=== PATIENT | female | born 1945 | race African-American/Black ===

== ENCOUNTER 2018-02-26 10:01 | Inpatient (IN) ==
[2018-02-26] MEDS ORDERED: Sodium Chlor 0.9% Inj 500 ML IV.SIG ONE (10:12)
--- NOTE | 2018-02-26 10:15 | ED ---
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 Culture Comments Urine Opiates Screen (Neg) Ur Barbiturates Screen (Neg) Ur Amphetamines Screen (Neg) U Benzodiazepines Scrn (Neg) Urine Cocaine Screen (Neg) U Cannabinoids Screen (Neg) 03/02/18 03/02/18 03/03/18 Range/Units 16:25 21:10 08:36 WBC (4.0-11.0) th/mm3 RBC (4.00-5.30) mil/mm3 Hgb (11.6-15.3) gm/dL Hct (35.0-46.0) % MCV (80.0-100.0) fL MCH (27.0-34.0) pg MCHC (32.0-36.0) % RDW (11.6-17.2) % Plt Count (150-450) th/mm3 MPV (7.0-11.0) fL Neut % (Auto) (16.0-70.0) % Lymph % (Auto) (9.0-44.0) % [place] % (Auto) (0.0-8.0) % Eos % (Auto) (0.0-4.0) % Baso % (Auto) (0.0-2.0) % Neut # (Auto) (1.8-7.7) th/mm3 Lymph # (Auto) (1.0-4.8) th/mm3 Valley # (Auto) (0.0-0.9) th/mm3 Eos # (Auto) (0.0-0.4) th/mm3 Baso # (Auto) (0.0-0.2) th/mm3 WBC Differential Differential Comment Sodium (136-145) meq/L Potassium (3.5-5.1) meq/L Chloride (98-107) meq/L Carbon Dioxide (21.0-32.0) meq/L Anion Gap (5-15) meq/L BUN (7-18) mg/dL Creatinine (0.50-1.00) mg/dL Estimated GFR (>89) mL/min POC Glucose 126 H 105 114 H (68-110) mg/dl Random Glucose (74-106) mg/dL Calcium (8.5-10.1) mg/dL Total Bilirubin (0.2-1.0) mg/dL Direct Bilirubin (0.0-0.2) mg/dL Indirect Bilirubin (0.0-0.8) mg/dL AST (15-37) U/L ALT (10-53) U/L Alkaline Phosphatase (45-117) U/L Ammonia (11-32) mcmol/L Total Creatine Kinase (26-192) U/L Troponin I (0.02-0.05) ng/mL Total Protein (6.4-8.2) g/dL Albumin (3.4-5.0) g/dL Urine Color (Yellw/Straw) Urine Clarity (Clear) Urine pH (5.0-8.5) Ur Specific [place] (1.002-1.035) Urine Protein (Neg-Trace) mg/dL Urine Glucose (UA) (Negative) mg/dL Urine Ketones (Negative) mg/dL Urine Occult Blood (Negative) Urine Nitrate (Negative) Urine Bilirubin (Negative) Urine Urobilinogen (Less than 2) mg/dL Ur Leukocyte Esterase (Negative) Urine RBC (0-3) /hpf Urine WBC (0-5) /hpf Urine WBC Clumps (None) Ur Squamous Epith Cells (0-5) /hpf Urine Bacteria (None) /hpf Hyaline Casts (0-3) /lpf Granular Casts (None) /lpf Micro UA Comment Ur Microscopic Review Urine Culture Comments Urine Opiates Screen (Neg) Ur Barbiturates Screen (Neg) Ur Amphetamines Screen (Neg) U Benzodiazepines Scrn (Neg) Urine Cocaine Screen (Neg) U Cannabinoids Screen (Neg) Imaging Data Radiologist's impression: Abdomen/Bladder Ultrasound 02/26/18 00:00 CONCLUSION: 1. Small right kidney. 2. 2.8 cm mid pole left renal cyst. 3. No solid mass or hydronephrosis. 4. Unremarkable urinary bladder. Chest X-Ray 02/26/18 10:12 CONCLUSION: No acute cardiopulmonary disease. Foot X-Ray 02/26/18 10:35 CONCLUSION: Apparent chronic metatarsal head fractures as above. Head CT 02/26/18 15:28 CONCLUSION: 1. Chronic/senescent changes without acute intracranial abnormality. . Discharge Plan Discharge Disposition Patient Disposition: 30 Still Patient Discharge Condition Condition: Fair Discharge Order Discharge Orders: Discharge Order (Routine); Ordered 03/01/18 Ordered By: Nikki Escobar Discharge Details Diagnosis: Syncope, Delirium Physicians Team ED Provider: Michael Jarrett Primary Care Provider: UNKNOWN, Attending Provider: Ashley Kothari Other Providers: David Cash ; Mckenna Vernon [place],[employer] ; [employer] Discharge Interventions Interventions: ED Discharge Assessment Last Done: 02/26/18 16:14 Vital Signs Last Done: 02/26/18 15:29 Status ED Status: Left Department Discharge Information Discharge Date/Time: 02/26/18 16:15
--- NOTE | 2018-02-26 11:37 | XR ---
EXAM DATE: 02/26/2018 10:56 AM EDT AGE/SEX: 72 years / Female INDICATIONS: Chest pain. CLINICAL DATA: This is the patient's initial encounter. Patient reports that signs and symptoms have been present for 1 day and indicates a pain score of 0/10. MEDICAL/SURGICAL HISTORY: None. . Right knee replacement. COMPARISON: No prior exams available for comparison. FINDINGS: A single AP view of the chest demonstrates the lungs to be symmetrically aerated without evidence of mass, infiltrate or effusion. The cardiomediastinal contours are unremarkable. Osseous structures a re intact. CONCLUSION: No acute cardiopulmonary disease. Electronically signed by: Denny Cunningham MD 02/26/2018 11:36 AM EDT
--- NOTE | 2018-02-26 11:50 | XR ---
EXAM DATE: 02/26/2018 11:00 AM EDT AGE/SEX: 72 years / Female INDICATIONS: Generalized pain on the left foot at mid metatarsal region. CLINICAL DATA: This is the patient's initial encounter. Patient reports that signs and symptoms have been present for 1 day and indicates a pain score of 5/10. MEDICAL/SURGICAL HISTORY: None. . Right knee replacement. COMPARISON: No prior exams available for comparison. FINDINGS: Moderate hallux valgus deformity with apparent chronic fractures of the second third fourth and fifth metatarsal heads. The tarsometatarsal joint in anatomic alignment. Minimal plantar spurring. CONCLUSION: Apparent chronic metatarsal head fractures as above. Electronically signed by: Dae Murillo MD 02/26/2018 11:48 AM EDT
[2018-02-26 12:48] LABS: Baso # (Auto) 0.1 th/mm3 (0.0-0.2); Baso % (Auto) 0.9 % (0.0-2.0); Eos % (Auto) 0.6 % (0.0-4.0); Hematocrit 38.6 % (35.0-46.0); Hemoglobin 13.1 gm/dL (11.6-15.3); Lymph # (Auto) 2.2 th/mm3 (1.0-4.8); Lymph % (Auto) 28.9 % (9.0-44.0); Mean Corpuscular Hemoglobin 27.3 pg (27.0-34.0); Mean Corpuscular Volume 80.1 fL (80.0-100.0); Mean Platelet Volume 9.7 fL (7.0-11.0); Mono # (Auto) 0.5 th/mm3 (0.0-0.9); Mono % (Auto) 5.8 % (0.0-8.0); Neut # (Auto) 4.9 th/mm3 (1.8-7.7); Neut % (Auto) 63.8 % (16.0-70.0); Platelet Count 250 th/mm3 (150-450); Red Blood Count 4.81 mil/mm3 (4.00-5.30); Red Cell Distribution Width 14.9 % (11.6-17.2); White Blood Count 7.8 th/mm3 (4.0-11.0)
[2018-02-26 13:16] LABS: Alkaline Phosphatase 89 U/L (45-117); Total Protein 8.1 g/dL (6.4-8.2)
[2018-02-26 13:18] LABS: Alanine Aminotransferase 37 U/L (10-53); Albumin 3.4 g/dL (3.4-5.0); Anion Gap 10 meq/L (5-15); Blood Urea Nitrogen 38 mg/dL (7-18); Calcium 8.9 mg/dL (8.5-10.1); Carbon Dioxide 25.9 meq/L (21.0-32.0); Chloride 104 meq/L (98-107); Glomerular Filtration Rate 33 mL/min (>89); Glucose,Random 83 mg/dL (74-106); Sodium 140 meq/L (136-145)
[2018-02-26 13:19] LABS: Aspartate Aminotransferase 47 U/L (15-37); Potassium 5.2 meq/L (3.5-5.1)
[2018-02-26] MEDS ORDERED: Bisacodyl 10 MG Supp RECTAL PRN (14:41)
[2018-02-26] MEDS ORDERED: Sod Chloride 0.9% Inj 1,000 ML IV.CONT SCH (14:45)
--- NOTE | 2018-02-26 14:57 | P.HPIM ---
History of Present Illness Primary Care Physician: UNKNOWN Chief Complaint: Generalized weakness and frequent falls Review of Systems 14 point review of systems otherwise negative PMFSH - History History Provided By: Patient - Medical History Medical History: Medical History (Last Updated 02/26/18 @ 10:15 by Danika Alfredo) Diabetes FH: total knee replacement HTN (hypertension) - Surgical History Surgical History: Surgical History (Last Updated 02/26/18 @ 10:15 by Danika Alfredo) History of ankle surgery - Social History I have reviewed the patient's Social History: Yes - Tobacco History Second Hand Smoke Exposure: No Tobacco Use In Past 30 Days: No Smoking Status: Never smoker - Alcohol History How Often Do You Have a Drink Containing Alcohol: Never - Substance Use History Substance History: No History of Abuse - Travel History Recent Travel in the [place] Within the Last 8 Weeks: No Recent Travel Out of the Country Within the Last 8 Weeks: No - Immunization History Tetanus Immunization: <5 Years Hx Influenza Vaccine This Season: Yes Medications and Allergies Active Medications: Active Medications Acetaminophen (Tylenol) 650 mg PO Q4H PRN PRN Reason: Temp > 100.4 Al Hydroxide/Mg Hydroxide (Milk Of Magnesia Liq) 30 ml PO Q12H PRN PRN Reason: Mild Constipation Bisacodyl (Dulcolax Supp) 10 mg RECTAL DAILY PRN PRN Reason: SEVERE CONSITIPATION Enoxaparin Sodium (Lovenox Inj) 30 mg SQ Q24H MICHAEL Ceftriaxone Sodium 1,000 mg/ (Sodium Chloride) 100 mls @ 200 mls/hr IV.SIG Q24H MICHAEL Sodium Chloride (Ns Inj) 1,000 mls @ 100 mls/hr IV.CONT .Q10H MICHAEL Lactulose (Lactulose Liq) 30 ml PO DAILY PRN PRN Reason: SEVERE CONSITIPATION Ondansetron HCl (Zofran Inj) 4 mg IV.PUSH Q6H PRN PRN Reason: NAUSEA OR VOMITING Senna/Docusate Sodium (Katja-Colace) 1 tab PO BID MICHAEL Sennosides (Senokot) 17.2 mg PO Q12H PRN PRN Reason: Moderate Constipation Sertraline HCl (Zoloft) 50 mg PO DAILY [facility] Sodium Chloride (Ns Flush) 2 ml IV.FLUSH UNSCH PRN PRN Reason: FLUSH AFTER USING IV ACCESS Allergies Allergy/AdvReac Type Severity Reaction Status Date / Time diphenhydramine Allergy Severe HALLUCINATI Verified 02/26/18 10:10 ONS meperidine Allergy Severe HALLUCINATI Verified 02/26/18 10:10 ONS Home Medications Medication Instructions Recorded Confirmed Type furosemide 40 mg PO DAILY 02/26/18 02/26/18 History glimepiride 1 mg PO QAM 02/26/18 02/26/18 History lisinopril 30 mg PO DAILY 02/26/18 02/26/18 History metformin 1,000 mg PO BID 02/26/18 02/26/18 History naproxen 500 mg PO BID PRN 02/26/18 02/26/18 History pregabalin [Lyrica] 100 mg PO DAILY 02/26/18 02/26/18 History ropinirole 0.25 mg PO DAILY 02/26/18 02/26/18 History sertraline 50 mg PO DAILY 02/26/18 02/26/18 History Exam Vital signs: Vital Signs 02/26/18 10:11 02/26/18 10:17 02/26/18 11:49 Temperature 98.3 F Pulse Rate 86 80 Respiratory Rate 16 15 Blood Pressure 118/67 108/59 L Pulse Oximetry 98 97 95 02/26/18 12:12 Temperature Pulse Rate Respiratory Rate Blood Pressure Pulse Oximetry 96 Intake & Output 02/25/18 02/26/18 02/26/18 18:59 06:59 18:59 Intake Total 500 / 500 Balance 500 / 500 Weight 66.224 kg Intake: IV 500 / 500 NS Inj 500 ML @ 999 mls/hr IV. 500 / 500 SIG ONCE ONE Rx#:[id number] Narrative: GENERAL: Alert and oriented to time place and person. Not encephalopathic SKIN: Warm and dry. HEAD: Atraumatic. Normocephalic. EYES: Pupils equal and round. No scleral icterus. No injection or drainage. ENT: No nasal bleeding or discharge. Mucous membranes pink and moist. NECK: Trachea midline. No JVD. CARDIOVASCULAR: Regular rate and rhythm. Capillary refill greater than 2 seconds. Skin is warm. Well-perfused RESPIRATORY: No accessory muscle use. Clear to auscultation. Breath sounds equal bilaterally. GASTROINTESTINAL: Abdomen soft, non-tender, nondistended. Hepatic and splenic margins not palpable. MUSCULOSKELETAL: There is some tenderness of the left mid foot. extremities without clubbing, cyanosis, or edema. No obvious deformities. NEUROLOGICAL: Awake and alert. No obvious cranial nerve deficits. Motor grossly within normal limits. Five out of 5 muscle strength in the arms and legs. Normal speech. PSYCHIATRIC: Appropriate mood and affect; insight and judgment normal. Results - Labs CBC & Chem 7: 02/26/18 12:33 02/26/18 12:33 Labs: Short CBC 02/26/18 Range/Units 12:33 WBC 7.8 (4.0-11.0) th/mm3 Hgb 13.1 (11.6-15.3) gm/dL Hct 38.6 (35.0-46.0) % Plt Count 250 (150-450) th/mm3 BMP 02/26/18 12:33 Sodium 140 Potassium 5.2 H Chloride 104 Carbon Dioxide 25.9 BUN 38 H Creatinine 1.84 H Calcium 8.9 Cardiac Enzymes 02/26/18 Range/Units 12:33 Troponin I Less than 0.02 L (0.02-0.05) ng/mL Liver Function 02/26/18 Range/Units 12:33 Total Bilirubin 0.6 (0.2-1.0) mg/dL AST 47 H (15-37) U/L ALT 37 (10-53) U/L Alkaline Phosphatase 89 (45-117) U/L Albumin 3.4 (3.4-5.0) g/dL - Imaging Impressions Chest X-Ray 02/26/18 10:12 CONCLUSION: No acute cardiopulmonary disease. Foot X-Ray 02/26/18 10:35 CONCLUSION: Apparent chronic metatarsal head fractures as above. Caprini VTE Risk Assessment Caprini VTE Risk Assessment: Moderate/High Risk (score >= 2) Caprini Risk Assessment Model: Point Value = 1 Point Value = 2 Point Value = 3 Point Value = 5 Age 41-60 Minor surgery BMI > 25 kg/m2 Swollen legs Varicose veins or History of unexplained or recurrent spontaneous Oral contraceptives or hormone replacement Sepsis (< 1 month) Serious lung disease, including pneumonia (< 1 month) Abnormal pulmonary function Acute myocardial infarction Congestive heart failure (< 1 month) History of inflammatory bowel disease Medical patient at bed rest Age 61-74 Arthroscopic surgery Major open surgery (> 45 min) Laparoscopic surgery (> 45 min) Malignancy Confined to bed (> 72 hours) Immobilizing plaster cast Central venous access Age >= 75 History of VTE Family history of VTE Factor V Leiden Prothrombin [id number] Lupus anticoagulant Anticardiolipin antibodies Elevated serum homocysteine Heparin-induced thrombocytopenia Other congenital or acquired thrombophilia Stroke (< 1 month) Elective arthroplasty Hip, pelvis, or leg fracture Acute spinal cord injury (< 1 month) Prophylaxis Regimen: Total Risk Factor Score Risk Level Prophylaxis Regimen 0-1 Low Early ambulation 2 Moderate Order ONE of the following: *Sequential Compression Device (SCD) *Heparin 5000 units SQ BID 3-4 Higher Order ONE of the following medications: *Heparin 5000 units SQ TID *Enoxaparin/Lovenox 40 mg SQ daily (WT < 150 kg, CrCl > 30 mL/min) *Enoxaparin/Lovenox 30 mg SQ daily (WT < 150 kg, CrCl > 10-29 mL/min) *Enoxaparin/Lovenox 30 mg SQ BID (WT < 150 kg, CrCl > 30 mL/min) AND/OR *Sequential Compression Device (SCD) 5 or more Highest Order ONE of the following medications: *Heparin 5000 units SQ TID (Preferred with Epidurals) *Enoxaparin/Lovenox 40 mg SQ daily (WT < 150 kg, CrCl > 30 mL/min) *Enoxaparin/Lovenox 30 mg SQ daily (WT < 150 kg, CrCl > 10-29 mL/min) *Enoxaparin/Lovenox 30 mg SQ BID (WT < 150 kg, CrCl > 30 mL/min) AND *Sequential Compression Device (SCD) Assessment and Plan - Plan #Severe hypotension present on admission no evidence of sepsis on admission most likely secondary to volume depletion/dehydration sepsis cannot be completely rule out #Orthostatic hypotension secondary to pulling the place and slight dehydration possible sepsis #Apparent chronic metatarsal head fractures with multiple falls? Sarcoid joint # Acute kidney injury secondary to prerenal azotemia due to acute tubular necrosis #History diabetes type 2 we will hold metformin/glyburide continue with Accu- Cheks before meals at bedtime #History of hypertension now hypotensive we will hold antihypertensive agents continue with gentle hydration #History of diabetic neuropathy on Lyrica will hold for now until she is more alert #History of diabetic nephropathy Plan Telemetry/normocephalic 100 cc/h/monitor for sepsis/hold antihypertensive agents and hypoglycemia agents. Accu-Cheks before meals at bedtime. Empirical treatment with Rocephin. Follow-up urine culture sensitivity. Lovenox for DVT prophylaxis. Fall precautions. Obtain orthopedic input. PT/OT. Case management for discharge planning Patient's increased risk for severe dehydration/sepsis. Anticipated length of stay 2 nights. Disposition home with home health care
--- NOTE | 2018-02-26 16:14 | CT ---
EXAM DATE: 02/26/2018 4:10 PM EDT AGE/SEX: 72 years / Female INDICATIONS: Altered mental status. CLINICAL DATA: This is the patient's initial encounter. Patient reports that signs and symptoms have been present for 1 day and indicates a pain score of 0/10. MEDICAL/SURGICAL HISTORY: Diabetes. Hypertension. None. RADIATION DOSE: 56.43 CTDI (mGy) COMPARISON: No prior exams available for comparison. TECHNIQUE: CT of the head without contrast. Using automated exposure control and adjustment of the mA and/or kV according to patient size, radiation dose was kept as low as reasonably achievable to ob tain optimal diagnostic quality images. DICOM format image data is available electronically for revi ew and comparison. FINDINGS: Cerebrum: Chronic appearing fairly symmetrical atrophy/encephalomalacia of the medial occipital lobes at the mid convexities bilaterally. Moderate diffuse cerebral atrophy. The ventricles are normal for degree of atrophy. No evidence of midline shift, mass lesion, hemorrhage or acute infarction. No ex traaxial fluid collections are seen. Posterior Fossa: The cerebellum and brainstem are intact. The 4th ventricle is midline. The cerebe llopontine angle is unremarkable. Extracranial: The visualized portion of the orbits is intact. 5 mm right scalp lipoma. Skull: The calvaria is intact. No evidence of skull fracture. CONCLUSION: 1. Chronic/senescent changes without acute intracranial abnormality. . Electronically signed by: Darshan Lakhani MD 02/26/2018 4:13 PM EDT
[2018-02-26 16:42] LABS: Bacteria,Urine Rare /hpf; Bilirubin,Urine Negative (Negative); Clarity,Urine Hazy (Clear); Color,Urine Yellow (Yellw/Straw); Glucose,Urine (UA) Negative (Negative); Hyaline Casts,Urine 23 /lpf (0-3); Leukocyte Esterase,Urine Moderate (Negative); Nitrite,Urine Negative (Negative); Specific Gravity,Urine 1.011 (1.002-1.035); Squamous Epithelial Cell,Urine 1 /hpf (0-5)
[2018-02-26] MEDS: Insulin NovoLOG Aspart Correctional Sugar Inj SQ SCH ×2 (16:49→21:09)
[2018-02-26] MEDS: Enoxaparin Inj 30 MG/0.3 ML Syringe SQ SCH (16:50)
[2018-02-26 16:55] LABS: Amphetamine Screen,Urine Neg (Neg); Barbiturate Screen,Urine Neg (Neg); Cannabinoid Screen,Urine Neg (Neg); Cocaine Screen,Urine Neg (Neg); Opiate Screen,Urine Neg (Neg)
[2018-02-26] MEDS ORDERED: Dextrose 50% in Water 50 ML Vial IV.PUSH PRN (17:11)
--- NOTE | 2018-02-26 17:21 | P.HPIM ---
History of Present Illness Primary Care Physician: UNKNOWN Chief Complaint: Generalized weakness and frequent falls History of Present Illness: 72-year-old female sent in by her physician due to hypotension. Reportedly his systolic blood pressures in the 70s, found to be systolic in the 80s on admission here. She denies any lightheadedness or dizziness. She does report starting a prescription for furosemide 3 days ago. Her main complaint is of constant sharp left midfoot pain which is been going on for several days following a mechanical fall at home. She says she got a wheelchair from a family member several days ago but it is not working. She wants to know if there is a brace or something that she can put on her foot that will help her walk. Patient says she is feeling all right. Denies any chest pain or shortness breath. Denies nausea or vomiting. Denies any lightheadedness or dizziness. Denies fevers or chills. Denies any dysuria. Denies any diarrhea or constipation. Review of Systems All other systems reviewed negative except as stated in HPI [facility] - History History Provided By: Patient - Medical History Medical History: Medical History (Last Updated 02/26/18 @ 10:15 by Danika Alfredo) Diabetes FH: total knee replacement HTN (hypertension) - Surgical History Surgical History: Surgical History (Last Updated 02/26/18 @ 10:15 by Danika Alfredo) History of ankle surgery - Family History Family History: Family History (Last Updated 02/26/18 @ 17:20 by Derek Paz MD) Father Stroke Mother of unknown cause - Tobacco History Second Hand Smoke Exposure: No Tobacco Use In Past 30 Days: No Smoking Status: Never smoker - Alcohol History How Often Do You Have a Drink Containing Alcohol: Never - Substance Use History Substance History: No History of Abuse - Travel History Recent Travel in the [place] Within the Last 8 Weeks: No Recent Travel Out of the Country Within the Last 8 Weeks: No - Immunization History Tetanus Immunization: <5 Years Hx Influenza Vaccine This Season: Yes Medications and Allergies Active Medications: Active Medications Acetaminophen (Tylenol) 650 mg PO Q4H PRN PRN Reason: Temp > 100.4 Al Hydroxide/Mg Hydroxide (Milk Of Magnesia Liq) 30 ml PO Q12H PRN PRN Reason: Mild Constipation Bisacodyl (Dulcolax Supp) 10 mg RECTAL DAILY PRN PRN Reason: SEVERE CONSITIPATION Dextrose (D50w Vial) 50 ml IV.PUSH UNSCH PRN PRN Reason: PER HYPOGLYCEMIA PROTOCOL Enoxaparin Sodium (Lovenox Inj) 30 mg SQ Q24H [facility] Last Admin: 02/26/18 16:50 Dose: 30 mg Glucagon (Glucagon Inj) 1 mg OTHER PRN PRN PRN Reason: for Hypoglycemia Protocol Ceftriaxone Sodium 1,000 mg/ (Sodium Chloride) 100 mls @ 200 mls/hr IV.SIG Q24H [facility] Last Admin: 02/26/18 16:46 Dose: 200 mls/hr Sodium Chloride (Ns Inj) 1,000 mls @ 84 mls/hr IV.CONT .[id number] [facility] Insulin Aspart (Novolog Insulin Correctional Sugar Inj) 0 unit SQ ACHS [facility]; Protocol Last Admin: 02/26/18 16:49 Dose: Not Given Lactulose (Lactulose Liq) 30 ml PO DAILY PRN PRN Reason: SEVERE CONSITIPATION Ondansetron HCl (Zofran Inj) 4 mg IV.PUSH Q6H PRN PRN Reason: NAUSEA OR VOMITING Ropinirole HCl (Requip) 0.25 mg PO DAILY [facility] Senna/Docusate Sodium (Katja-Colace) 1 tab PO BID [facility] Sennosides (Senokot) 17.2 mg PO Q12H PRN PRN Reason: Moderate Constipation Sertraline HCl (Zoloft) 50 mg PO DAILY [facility] Sodium Chloride (Ns Flush) 2 ml IV.FLUSH UNSCH PRN PRN Reason: FLUSH AFTER USING IV ACCESS Allergies Allergy/AdvReac Type Severity Reaction Status Date / Time diphenhydramine Allergy Severe HALLUCINATI Verified 02/26/18 10:10 ONS meperidine Allergy Severe HALLUCINATI Verified 02/26/18 10:10 ONS Home Medications Medication Instructions Recorded Confirmed Type furosemide 40 mg PO DAILY 02/26/18 02/26/18 History glimepiride 1 mg PO QAM 02/26/18 02/26/18 History lisinopril 30 mg PO DAILY 02/26/18 02/26/18 History metformin 1,000 mg PO BID 02/26/18 02/26/18 History naproxen 500 mg PO BID PRN 02/26/18 02/26/18 History pregabalin [Lyrica] 100 mg PO DAILY 02/26/18 02/26/18 History ropinirole 0.25 mg PO DAILY 02/26/18 02/26/18 History sertraline 50 mg PO DAILY 02/26/18 02/26/18 History Exam Vital signs: Vital Signs 02/26/18 10:11 02/26/18 10:17 02/26/18 11:49 Temperature 98.3 F Pulse Rate 86 80 Respiratory Rate 16 15 Blood Pressure 118/67 108/59 L Pulse Oximetry 98 97 95 02/26/18 12:12 02/26/18 15:29 02/26/18 16:40 Temperature 97.8 F Pulse Rate 80 78 Respiratory Rate 16 18 Blood Pressure 111/61 125/60 Pulse Oximetry 96 98 02/26/18 16:43 Temperature Pulse Rate Respiratory Rate Blood Pressure Pulse Oximetry 97 Intake & Output 02/25/18 02/26/18 02/26/18 18:59 06:59 18:59 Intake Total 500 / 500 Balance 500 / 500 Weight 66.224 kg Intake: IV 500 / 500 NS Inj 500 ML @ 999 mls/hr IV. 500 / 500 SIG ONCE ONE Rx#:[id number] Narrative: GENERAL:patient sitting up in bed. Alert and oriented times 3. SKIN: Warm and dry. HEAD: Atraumatic. Normocephalic. EYES: Pupils equal and round. No scleral icterus. No injection or drainage. ENT: No nasal bleeding or discharge. Mucous membranes pink and moist. NECK: Trachea midline. No JVD. CARDIOVASCULAR: Regular rate and rhythm. RESPIRATORY: No accessory muscle use. Clear to auscultation. Breath sounds equal bilaterally. GASTROINTESTINAL: Abdomen soft, non-tender, nondistended. Hepatic and splenic margins not palpable. MUSCULOSKELETAL: Extremities without clubbing, cyanosis, or edema. No obvious deformities. very small stage 2 subcentimeter ulcer on the left buttocks. Left foot examined, not tender to palpation. Previous surgical scars noted. NEUROLOGICAL: Awake and alert. No obvious cranial nerve deficits. Motor grossly within normal limits. 4 out of 5 muscle strength in the arms and legs. Normal speech. PSYCHIATRIC: Appropriate mood and affect; insight and judgment normal. Results - Labs CBC & Chem 7: 02/26/18 12:33 02/26/18 12:33 Labs: Short CBC 02/26/18 Range/Units 12:33 WBC 7.8 (4.0-11.0) th/mm3 Hgb 13.1 (11.6-15.3) gm/dL Hct 38.6 (35.0-46.0) % Plt Count 250 (150-450) th/mm3 BMP 02/26/18 12:33 Sodium 140 Potassium 5.2 H Chloride 104 Carbon Dioxide 25.9 BUN 38 H Creatinine 1.84 H Calcium 8.9 Cardiac Enzymes 02/26/18 02/26/18 Range/Units 12:33 16:00 Total Creatine Kinase 170 (26-192) U/L Troponin I Less than 0.02 L (0.02-0.05) ng/mL Liver Function 02/26/18 Range/Units 12:33 Total Bilirubin 0.6 (0.2-1.0) mg/dL AST 47 H (15-37) U/L ALT 37 (10-53) U/L Alkaline Phosphatase 89 (45-117) U/L Albumin 3.4 (3.4-5.0) g/dL Urine 02/26/18 Range/Units 15:49 Urine Color Yellow (Yellw/Straw) Urine Clarity Hazy H (Clear) Urine pH 5.0 (5.0-8.5) Ur Specific [place] 1.011 (1.002-1.035) Urine Protein Negative (Neg-Trace) mg/dL Urine Glucose (UA) Negative (Negative) mg/dL - Imaging Impressions Chest X-Ray 02/26/18 10:12 CONCLUSION: No acute cardiopulmonary disease. Foot X-Ray 02/26/18 10:35 CONCLUSION: Apparent chronic metatarsal head fractures as above. Head CT 02/26/18 15:28 CONCLUSION: 1. Chronic/senescent changes without acute intracranial abnormality. . Caprini VTE Risk Assessment Caprini VTE Risk Assessment: Moderate/High Risk (score >= 2) Caprini Risk Assessment Model: Point Value = 1 Point Value = 2 Point Value = 3 Point Value = 5 Age 41-60 Minor surgery BMI > 25 kg/m2 Swollen legs Varicose veins or History of unexplained or recurrent spontaneous Oral contraceptives or hormone replacement Sepsis (< 1 month) Serious lung disease, including pneumonia (< 1 month) Abnormal pulmonary function Acute myocardial infarction Congestive heart failure (< 1 month) History of inflammatory bowel disease Medical patient at bed rest Age 61-74 Arthroscopic surgery Major open surgery (> 45 min) Laparoscopic surgery (> 45 min) Malignancy Confined to bed (> 72 hours) Immobilizing plaster cast Central venous access Age >= 75 History of VTE Family history of VTE Factor V Leiden Prothrombin [id number] Lupus anticoagulant Anticardiolipin antibodies Elevated serum homocysteine Heparin-induced thrombocytopenia Other congenital or acquired thrombophilia Stroke (< 1 month) Elective arthroplasty Hip, pelvis, or leg fracture Acute spinal cord injury (< 1 month) Prophylaxis Regimen: Total Risk Factor Score Risk Level Prophylaxis Regimen 0-1 Low Early ambulation 2 Moderate Order ONE of the following: *Sequential Compression Device (SCD) *Heparin 5000 units SQ BID 3-4 Higher Order ONE of the following medications: *Heparin 5000 units SQ TID *Enoxaparin/Lovenox 40 mg SQ daily (WT < 150 kg, CrCl > 30 mL/min) *Enoxaparin/Lovenox 30 mg SQ daily (WT < 150 kg, CrCl > 10-29 mL/min) *Enoxaparin/Lovenox 30 mg SQ BID (WT < 150 kg, CrCl > 30 mL/min) AND/OR *Sequential Compression Device (SCD) 5 or more Highest Order ONE of the following medications: *Heparin 5000 units SQ TID (Preferred with Epidurals) *Enoxaparin/Lovenox 40 mg SQ daily (WT < 150 kg, CrCl > 30 mL/min) *Enoxaparin/Lovenox 30 mg SQ daily (WT < 150 kg, CrCl > 10-29 mL/min) *Enoxaparin/Lovenox 30 mg SQ BID (WT < 150 kg, CrCl > 30 mL/min) AND *Sequential Compression Device (SCD) Assessment and Plan - Plan //Severe hypotension. /With history of hypertension -Hypotension Likely secondary to dehydration secondary to starting furosemide recently. Improved after fluid bolus in the ER. We will continue to hold furosemide. Gentle hydration. Continue to monitor. Will order orthostatic blood pressures. //Acute kidney injury. Her creatinine 1.8 from normal baseline. Likely secondary to recently starting Lasix, subsequent dehydration. hold MANISHA inhibitor.Expect to improve with IV fluids. //Hyperkalemia of 5.2. Secondary to a MATT above. Expect to improve with IV fluids. //Chronic metatarsal head fractures on left foot x-ray. Consult placed to orthopedics. Physical therapy ordered. Patient will likely need SNF, as she has been unable to get around at home. //Type 2 diabetes. Relative hypoglycemia likely secondary to acute kidney injury, decreased insulin clearance. Hold home meds. Insulin sliding scale and diabetic diet //Sacral ulcer. Small ulcer, which patient reports is secondary to drag herself around home because her foot hurts. Wound care nursing evaluation. //Possible UTI. Versus asymptomatic bacteriuria. Patient with some white blood cell clumps on urinalysis. Has been started on ceftriaxone. We'll follow up cultures. //Diabetic neuropathy. Continue home meds. //DVT prophylaxis. Low-dose Lovenox. Discussed Condition With: patient, nurse, ED physician. Discharge Planning: hopefully home with home health versus SNF in the next 12 days
[2018-02-26] MEDS: Sod Chloride 0.9% Inj 1,000 ML IV.CONT SCH (18:55)
--- NOTE | 2018-02-26 19:34 | MB ---
cc: Rico Wetzel [facility] DATE: 02/26/2018 CHIEF COMPLAINT: Left foot pain. HISTORY OF PRESENT ILLNESS: This is a 72-year-old female who arrived at the emergency department today by EMS for evaluation after being found on her floor. The patient states that she has had some balance issues recently and has had several falls. The patient did fall today and was unable to get off the floor independently. The patient states that 1 week ago, she fell and started having pain about the left foot. The patient states she had no pain to the left foot other than her normal peripheral neuropathy prior to her fall. Currently, the patient states her pain is moderate to severe. The patient states the pain is intermittent and is worse when ambulatory or when weightbearing. The patient states most of her pain is about the midfoot. The patient does have some tingling and numbness about the bilateral feet from her peripheral neuropathy. The patient does ambulate regularly with a walker or cane. The patient has a history of diabetes, hypertension and peripheral neuropathy. REVIEW OF SYSTEMS: Negative x 12 except for what is stated in the HPI. PAST MEDICAL HISTORY: 1. Diabetes. 2. Hypertension. 3. Peripheral neuropathy. PAST SURGICAL HISTORY: 1. Right total knee arthroplasty with Dr. Cash. 2. Left ankle open reduction and internal fixation. 3. Tonsillectomy. 4. section. SOCIAL HISTORY: The patient denies any tobacco, alcohol or drug use. ALLERGIES: DEMEROL AND BENADRYL. MEDICATIONS: See nurse's notes. PHYSICAL EXAMINATION: VITAL SIGNS: Temperature 97.8, pulse 78, respirations 18, blood pressure 125/60, pulse oximetry 97% on room air. GENERAL: This is an elderly female in mild distress. HEAD: Normocephalic and atraumatic. EYES: PERRLA. EARS, NOSE, AND THROAT: There are moist mucous membranes with no drainage from the ears or nose. NECK: Supple and trachea is midline. CARDIOVASCULAR: The patient has 2+ radial pulses bilaterally and 1+ pedal pulses bilaterally. RESPIRATORY: The patient has symmetric chest wall rise and nonlabored breathing. ABDOMEN: Soft and nondistended. MUSCULOSKELETAL: The patient has no tenderness and good range of motion of the bilateral ankles, knees, hips, wrists, elbows and shoulders. The patient does have some tenderness to palpation about the left midfoot. There is some chronic deformity to the bilateral toes. Skin is intact about the left foot. The patient has no tenderness about the Achilles or the ankle. The patient does have some mild swelling to the midfoot. NEUROLOGIC: The patient is alert and oriented x 3 with no obvious cranial nerve deficits. PSYCHIATRIC: The patient has a normal mood and affect. LABORATORY DATA: Taken on 02/26/2018 show a white blood cell count of 7.8, hemoglobin 13.1, hematocrit 38.6, platelets 250. Potassium is elevated at 5.2, creatinine is high at 1.84, glucose is 83. Troponin is less than 0.02. Urinalysis taken on 02/26/2018 does show moderate leukocyte esterase with negative nitrites. The patient has high urine bacteria. Culture is indicated. IMAGING DATA: X-ray of the left foot, 3 views, on 02/26/2018 reads as apparent chronic metatarsal head fractures. There is moderate hallux valgus deformity with chronic fractures to the second, third, fourth and fifth metatarsal heads. I have reviewed the x-ray images and agree with the radiologist's interpretation. IMPRESSION: 1. Left foot chronic to subacute second, third, fourth and fifth metatarsal head and neck fractures. 2. Moderate hallux valgus deformity of the left foot. MEDICAL DECISION MAKING: I have reviewed the aforementioned images and do feel that the fractures to the second, third, fourth and fifth metatarsal heads/necks are chronic to subacute. We discussed the patient's findings today during her evaluation. The patient is clinically tender over the midfoot. The patient does report having a recent fall 1 week ago and states her pain did start at that time. I would like to place the patient in a fracture boot today to offload stress to the midfoot. The patient should try to limit her weightbearing on the left lower extremity. The patient should use a walker for balance and support. I do feel the patient would benefit from some physical therapy to work on her balance issues as well as some range of motion for the left ankle. I do not feel the patient requires any surgical intervention for the foot. There is overall good alignment of her fractures, which should heal in good anatomical position. I would like the patient to follow up in the office in 1-2 weeks for close followup of the left foot. We will repeat x-rays, AP, lateral and oblique views. The patient will remain limited with her weightbearing status until her symptoms resolve. I have reviewed the above impression and plan of care with Dr. Cash and he agrees with this documentation. JOHANNE LoveP MD CHRYSTAL Ivy/harshal , 05:40 PM , 05:58 PM ANDREEA
--- NOTE | 2018-02-26 19:42 | US ---
EXAM DATE: 02/26/2018 7:24 PM EDT AGE/SEX: 72 years / Female INDICATIONS: Increased lab values. CLINICAL DATA: This is the patient's initial encounter. Patient reports that signs and symptoms have been present for 1 day and indicates a pain score of 0/10. MEDICAL/SURGICAL HISTORY: Diabetes. Hypertension. . Total knee replacement. Ankle surgery. COMPARISON: No prior exams available for comparison. MEASUREMENTS: Right Kidney:__7.1 x 3.8 x 4.4 cm Left Kidney:__9.0 x 6.1 x 4.6 cm FINDINGS: Right Kidney: The right kidney is small compared to the left but demonstrates no solid mass or hydron ephrosis. Left Kidney: The left kidney is more normal in size and demonstrates no solid mass or hydronephrosis. There is a simple cyst within the midpole measuring 2.4 x 2.4 x 2.8 cm. Bladder: Within normal limits given the degree of distension. Other: None. CONCLUSION: 1. Small right kidney. 2. 2.8 cm mid pole left renal cyst. 3. No solid mass or hydronephrosis. 4. Unremarkable urinary bladder. Electronically signed by: Michael Espinoza MD 02/26/2018 7:40 PM EDT
[2018-02-26] MEDS: Senna/Docusate Sodium 8.6/50 MG Tablet PO SCH (21:09)
[2018-02-27] MEDS: Acetaminophen 325 MG Tablet PO PRN ×2 (01:27→13:13)
[2018-02-27] MEDS: Sod Chloride 0.9% Inj 1,000 ML IV.CONT SCH (06:31)
[2018-02-27] MEDS ORDERED: Furosemide 40 MG Tablet PO SCH (09:00)
[2018-02-27] MEDS: Sertraline 50 MG Tablet PO SCH (09:16)
[2018-02-27] MEDS: Senna/Docusate Sodium 8.6/50 MG Tablet PO SCH ×2 (09:16→22:32)
[2018-02-27] MEDS: Insulin NovoLOG Aspart Correctional Sugar Inj SQ SCH ×4 (10:57→22:32)
[2018-02-27 10:58] LABS: Alanine Aminotransferase 29 U/L (10-53); Albumin 2.7 g/dL (3.4-5.0); Alkaline Phosphatase 84 U/L (45-117); Anion Gap 9 meq/L (5-15); Aspartate Aminotransferase 41 U/L (15-37); Blood Urea Nitrogen 29 mg/dL (7-18); Calcium 8.7 mg/dL (8.5-10.1); Carbon Dioxide 24.8 meq/L (21.0-32.0); Chloride 109 meq/L (98-107); Glomerular Filtration Rate 46 mL/min (>89); Glucose,Random 73 mg/dL (74-106); Potassium 5.2 meq/L (3.5-5.1); Sodium 143 meq/L (136-145); Total Protein 6.7 g/dL (6.4-8.2)
--- NOTE | 2018-02-27 11:49 | P.PNIM ---
Subjective Interval history: Follow-up severe hypotension, acute kidney injury, chronic metatarsal left foot fracture, and possible UTI. Patient seen and evaluated laying in bed, Complains of pain and discomfort in the left foot when walking on it. Patient states that she got caught in a wire at home and starting to hurt her feet.. Denies any dizziness or lightheadedness, shortness of breath. Denies any fever or chills. Denies any nausea or vomiting. Denies diarrhea or constipation. Physical Exam Vital signs: Vital Signs 02/26/18 11:49 02/26/18 12:12 02/26/18 15:29 Temperature Pulse Rate 80 80 Respiratory Rate 15 16 Blood Pressure 108/59 L 111/61 Pulse Oximetry 95 96 98 02/26/18 16:40 02/26/18 16:43 02/26/18 20:00 Temperature 97.8 F 98.3 F Pulse Rate 78 94 H Respiratory Rate 18 18 Blood Pressure 125/60 114/84 Pulse Oximetry 97 02/26/18 23:13 02/27/18 03:46 02/27/18 08:00 Temperature 98.6 F 98.6 F 97.8 F Pulse Rate 72 89 71 Respiratory Rate 19 19 16 Blood Pressure 99/54 L 119/56 L 101/53 L Pulse Oximetry 96 98 Intake & Output 02/26/18 02/27/18 02/27/18 18:59 06:59 18:59 Intake Total 600 / 600 1270 / 1270 1000 / 1000 Output Total 400 / 400 Balance 600 / 600 870 / 870 1000 / 1000 Weight 66.224 kg 66.224 kg Intake: IV 600 / 600 1000 / 1000 1000 / 1000 NS Inj 1,000 ML @ 84 mls/hr IV. 1000 / 1000 CONT .[id number] MICHAEL Rx#:[id number] NS Inj 500 ML @ 999 mls/hr IV. 500 / 500 SIG ONCE ONE Rx#:[id number] Rocephin Inj 1,000 MG In NS Inj 100 / 100 100 ML @ 200 mls/hr IV.SIG Q24H [facility] Rx#:[id number] Oral 270 / 270 Output: Urine 400 / 400 Other: Other Intake Source Saline Solution Date of Last Bowel Movement 02/25/18 02/25/18 02/25/18 Weight On Admission 66.224 kg Narrative: GENERAL: Frail looking lady, alert and oriented 3 , with no apparent distress SKIN: Warm and dry. sacral excoriation, and small wound HEAD: Atraumatic. Normocephalic. EYES: Pupils equal and round. No scleral icterus. No injection or drainage. ENT: No nasal bleeding or discharge. Mucous membranes pink and moist. NECK: Trachea midline. No JVD. CARDIOVASCULAR: Regular rate and rhythm. RESPIRATORY: No accessory muscle use. Clear to auscultation. Breath sounds equal bilaterally. GASTROINTESTINAL: Abdomen soft, non-tender, nondistended. Hepatic and splenic margins not palpable. MUSCULOSKELETAL: Extremities without clubbing, cyanosis, or edema. No obvious deformities. left foot with healed surgical scar. NEUROLOGICAL: Awake and alert. No obvious cranial nerve deficits. Motor grossly within normal limits. Five out of 5 muscle strength in the arms and legs. Normal speech. PSYCHIATRIC: Appropriate mood and affect; insight and judgment normal. Results - Labs CBC & Chem 7: 02/26/18 12:33 02/27/18 09:34 Laboratory Results - last 24 hr 02/26/18 02/26/18 02/26/18 12:33 12:33 15:49 WBC 7.8 RBC 4.81 Hgb 13.1 Hct 38.6 MCV 80.1 MCH 27.3 MCHC 34.0 RDW 14.9 Plt Count 250 MPV 9.7 Neut % (Auto) 63.8 Lymph % (Auto) 28.9 [place] % (Auto) 5.8 Eos % (Auto) 0.6 Baso % (Auto) 0.9 Neut # (Auto) 4.9 Lymph # (Auto) 2.2 [place] # (Auto) 0.5 Eos # (Auto) 0.0 Baso # (Auto) 0.1 WBC Differential . Differential Comment Auto diff final Sodium 140 Potassium 5.2 H Chloride 104 Carbon Dioxide 25.9 Anion Gap 10 BUN 38 H Creatinine 1.84 H Estimated GFR 33 L POC Glucose Random Glucose 83 Calcium 8.9 Total Bilirubin 0.6 Direct Bilirubin Indirect Bilirubin AST 47 H ALT 37 Alkaline Phosphatase 89 Ammonia Total Creatine Kinase Troponin I Less than 0.02 L Total Protein 8.1 Albumin 3.4 Urine Color Yellow Urine Clarity Hazy H Urine pH 5.0 Ur Specific [place] 1.011 Urine Protein Negative Urine Glucose (UA) Negative Urine Ketones Negative Urine Occult Blood Small H Urine Nitrate Negative Urine Bilirubin Negative Urine Urobilinogen 2.0 H Ur Leukocyte Esterase Moderate H Urine RBC Less than 1 Urine WBC 8 H Urine WBC Clumps Few H Ur Squamous Epith Cells 1 Urine Bacteria Rare H Hyaline Casts 23 Granular Casts 7 Micro UA Comment Cath-culture ind Ur Microscopic Review Not Reportable Urine Culture Comments Cath-cult indicated Urine Opiates Screen Ur Barbiturates Screen Ur Amphetamines Screen U Benzodiazepines Scrn Urine Cocaine Screen U Cannabinoids Screen 02/26/18 02/26/18 02/26/18 15:49 16:00 16:00 WBC RBC Hgb Hct MCV MCH MCHC RDW Plt Count MPV Neut % (Auto) Lymph % (Auto) [place] % (Auto) Eos % (Auto) Baso % (Auto) Neut # (Auto) Lymph # (Auto) [place] # (Auto) Eos # (Auto) Baso # (Auto) WBC Differential Differential Comment Sodium Potassium Chloride Carbon Dioxide Anion Gap BUN Creatinine Estimated GFR POC Glucose Random Glucose Calcium Total Bilirubin Direct Bilirubin Indirect Bilirubin AST ALT Alkaline Phosphatase Ammonia 21 Total Creatine Kinase 170 Troponin I Total Protein Albumin Urine Color Urine Clarity Urine pH Ur Specific [place] Urine Protein Urine Glucose (UA) Urine Ketones Urine Occult Blood Urine Nitrate Urine Bilirubin Urine Urobilinogen Ur Leukocyte Esterase Urine RBC Urine WBC Urine WBC Clumps Ur Squamous Epith Cells Urine Bacteria Hyaline Casts Granular Casts Micro UA Comment Ur Microscopic Review Urine Culture Comments Urine Opiates Screen Neg Ur Barbiturates Screen Neg Ur Amphetamines Screen Neg U Benzodiazepines Scrn Neg Urine Cocaine Screen Neg U Cannabinoids Screen Neg 02/26/18 02/26/18 02/26/18 16:44 17:23 18:06 WBC RBC Hgb Hct MCV MCH MCHC RDW Plt Count MPV Neut % (Auto) Lymph % (Auto) [place] % (Auto) Eos % (Auto) Baso % (Auto) Neut # (Auto) Lymph # (Auto) [place] # (Auto) Eos # (Auto) Baso # (Auto) WBC Differential Differential Comment Sodium Potassium Chloride Carbon Dioxide Anion Gap BUN Creatinine Estimated GFR POC Glucose 65 L 102 Random Glucose 96 Calcium Total Bilirubin Direct Bilirubin Indirect Bilirubin AST ALT Alkaline Phosphatase Ammonia Total Creatine Kinase Troponin I Total Protein Albumin Urine Color Urine Clarity Urine pH Ur Specific [place] Urine Protein Urine Glucose (UA) Urine Ketones Urine Occult Blood Urine Nitrate Urine Bilirubin Urine Urobilinogen Ur Leukocyte Esterase Urine RBC Urine WBC Urine WBC Clumps Ur Squamous Epith Cells Urine Bacteria Hyaline Casts Granular Casts Micro UA Comment Ur Microscopic Review Urine Culture Comments Urine Opiates Screen Ur Barbiturates Screen Ur Amphetamines Screen U Benzodiazepines Scrn Urine Cocaine Screen U Cannabinoids Screen 02/26/18 02/27/18 02/27/18 21:09 03:45 04:10 WBC RBC Hgb Hct MCV MCH MCHC RDW Plt Count MPV Neut % (Auto) Lymph % (Auto) [place] % (Auto) Eos % (Auto) Baso % (Auto) Neut # (Auto) Lymph # (Auto) [place] # (Auto) Eos # (Auto) Baso # (Auto) WBC Differential Differential Comment Sodium Potassium Chloride Carbon Dioxide Anion Gap BUN Creatinine Estimated GFR POC Glucose 121 H 69 87 Random Glucose Calcium Total Bilirubin Direct Bilirubin Indirect Bilirubin AST ALT Alkaline Phosphatase Ammonia Total Creatine Kinase Troponin I Total Protein Albumin Urine Color Urine Clarity Urine pH Ur Specific [place] Urine Protein Urine Glucose (UA) Urine Ketones Urine Occult Blood Urine Nitrate Urine Bilirubin Urine Urobilinogen Ur Leukocyte Esterase Urine RBC Urine WBC Urine WBC Clumps Ur Squamous Epith Cells Urine Bacteria Hyaline Casts Granular Casts Micro UA Comment Ur Microscopic Review Urine Culture Comments Urine Opiates Screen Ur Barbiturates Screen Ur Amphetamines Screen U Benzodiazepines Scrn Urine Cocaine Screen U Cannabinoids Screen 02/27/18 02/27/18 02/27/18 04:29 04:48 09:30 WBC RBC Hgb Hct MCV MCH MCHC RDW Plt Count MPV Neut % (Auto) Lymph % (Auto) [place] % (Auto) Eos % (Auto) Baso % (Auto) Neut # (Auto) Lymph # (Auto) [place] # (Auto) Eos # (Auto) Baso # (Auto) WBC Differential Differential Comment Sodium Potassium Chloride Carbon Dioxide Anion Gap BUN Creatinine Estimated GFR POC Glucose 89 102 70 Random Glucose Calcium Total Bilirubin Direct Bilirubin Indirect Bilirubin AST ALT Alkaline Phosphatase Ammonia Total Creatine Kinase Troponin I Total Protein Albumin Urine Color Urine Clarity Urine pH Ur Specific [place] Urine Protein Urine Glucose (UA) Urine Ketones Urine Occult Blood Urine Nitrate Urine Bilirubin Urine Urobilinogen Ur Leukocyte Esterase Urine RBC Urine WBC Urine WBC Clumps Ur Squamous Epith Cells Urine Bacteria Hyaline Casts Granular Casts Micro UA Comment Ur Microscopic Review Urine Culture Comments Urine Opiates Screen Ur Barbiturates Screen Ur Amphetamines Screen U Benzodiazepines Scrn Urine Cocaine Screen U Cannabinoids Screen 02/27/18 09:34 WBC RBC Hgb Hct MCV MCH MCHC RDW Plt Count MPV Neut % (Auto) Lymph % (Auto) [place] % (Auto) Eos % (Auto) Baso % (Auto) Neut # (Auto) Lymph # (Auto) [place] # (Auto) Eos # (Auto) Baso # (Auto) WBC Differential Differential Comment Sodium 143 Potassium 5.2 H Chloride 109 H Carbon Dioxide 24.8 Anion Gap 9 BUN 29 H Creatinine 1.38 H Estimated GFR 46 L POC Glucose Random Glucose 73 L Calcium 8.7 Total Bilirubin 0.4 Direct Bilirubin 0.2 Indirect Bilirubin 0.2 AST 41 H ALT 29 Alkaline Phosphatase 84 Ammonia Total Creatine Kinase Troponin I Total Protein 6.7 D Albumin 2.7 L D Urine Color Urine Clarity Urine pH Ur Specific [place] Urine Protein Urine Glucose (UA) Urine Ketones Urine Occult Blood Urine Nitrate Urine Bilirubin Urine Urobilinogen Ur Leukocyte Esterase Urine RBC Urine WBC Urine WBC Clumps Ur Squamous Epith Cells Urine Bacteria Hyaline Casts Granular Casts Micro UA Comment Ur Microscopic Review Urine Culture Comments Urine Opiates Screen Ur Barbiturates Screen Ur Amphetamines Screen U Benzodiazepines Scrn Urine Cocaine Screen U Cannabinoids Screen - Imaging Impressions Abdomen/Bladder Ultrasound 02/26/18 00:00 CONCLUSION: 1. Small right kidney. 2. 2.8 cm mid pole left renal cyst. 3. No solid mass or hydronephrosis. 4. Unremarkable urinary bladder. Chest X-Ray 02/26/18 10:12 CONCLUSION: No acute cardiopulmonary disease. Foot X-Ray 02/26/18 10:35 CONCLUSION: Apparent chronic metatarsal head fractures as above. Head CT 02/26/18 15:28 CONCLUSION: 1. Chronic/senescent changes without acute intracranial abnormality. . Assessment and Plan - Assessment (1) MATT (acute kidney injury) Code(s): N17.9 - Acute kidney failure, unspecified Status: Acute (2) Hypokalemia Code(s): E87.6 - Hypokalemia Status: Acute (3) Metatarsal bone fracture Code(s): S92.309A - Fracture of unspecified metatarsal bone(s), unspecified foot , initial encounter for closed fracture Status: Acute (4) Hypotension Code(s): I95.9 - Hypotension, unspecified Status: Acute - Plan This is a 72-year-old female sent in by her physician due to hypotension. She was found on the floor by the emergency transport, unknown if pt had syncope, likely related to hypotension. Her systolic blood pressure was reported to be in the 70s, found to be systolic in the 80s on admission here. She denies any lightheadedness or dizziness. She does report starting a prescription for furosemide 3 days ago. Her main complaint is of constant sharp left midfoot pain which is been going on for several days following a mechanical fall at home. Severe hypotension With history of hypertension -Hypotension Likely secondary to dehydration secondary to starting furosemide recently. -Improved after fluid bolus, IV Infiltrated, will encourage PO intake -continue to hold furosemide -Continue to monitor. Will order orthostatic blood pressures. Acute kidney injury. -creatinine improved today at 1.38 -hold MANISHA inhibitor -encourage increase fluid Hyperkalemia -slightly elevated at 5.2 not improved with IVF, given kayexelate -recheck K level Chronic metatarsal head fractures on left foot x-ray -Orthopedics seen : recommended use of walker for balance and support and no surgical intervention necessary at this time - continue Physical therapy - Patient will likely need SNF, as she has been unable to get around at home. Type 2 diabetes - Relative hypoglycemia likely secondary to acute kidney injury, decreased insulin clearance. -continue Hold home med - Insulin sliding scale and diabetic diet Sacral ulcer - Small ulcer, which patient reports is secondary to drag herself around home because her foot hurts - Wound care nursing evaluation. Possible UTI vs asymptomatic bacteriuria -Patient with some white blood cell clumps on urinalysis, culture pending - started on ceftriaxone Diabetic neuropathy Continue home meds. DVT prophylaxis: Low-dose Lovenox Discharge Planning: Plan discharge to SNF when stable
[2018-02-27] MEDS: cefTRIAXone Inj 1,000 MG Vial IM SCH (13:40)
[2018-02-27] MEDS: Lidocaine PF 1% Inj 5 ML Vial OTHER SCH (13:46)
[2018-02-27] MEDS ORDERED: Sodium Polystyrene Sulfonate/Sorbitol Liq 15 GM/60 ML UDC PO ONE (14:00)
[2018-02-27] MEDS: Enoxaparin Inj 30 MG/0.3 ML Syringe SQ SCH (16:22)
[2018-02-28 08:56] LABS: Calcium 8.2 mg/dL (8.5-10.1); Carbon Dioxide 24.8 meq/L (21.0-32.0); Potassium 4.1 meq/L (3.5-5.1)
[2018-02-28] MEDS: Senna/Docusate Sodium 8.6/50 MG Tablet PO SCH ×2 (09:10→20:42)
[2018-02-28] MEDS: Sertraline 50 MG Tablet PO SCH (09:10)
[2018-02-28] MEDS: Insulin NovoLOG Aspart Correctional Sugar Inj SQ SCH ×4 (09:11→20:42)
--- NOTE | 2018-02-28 09:23 | P.PNIM ---
Subjective Interval history: Patient complains of swelling and mild pain of the left foot. She does not complain of anything else. Physical Exam Vital signs: Vital Signs 02/27/18 12:00 02/27/18 16:00 02/27/18 18:00 Temperature 97.4 F L 98.1 F 97.9 F Pulse Rate 86 82 83 Respiratory Rate 16 16 20 Blood Pressure 107/52 L 110/57 L 120/58 L Pulse Oximetry 96 97 98 02/27/18 20:45 02/28/18 00:15 02/28/18 05:45 Temperature 97.9 F 98 F 98.7 F Pulse Rate 87 80 65 Respiratory Rate 17 18 17 Blood Pressure 123/58 L 125/58 L Pulse Oximetry 98 97 02/28/18 08:00 Temperature 97.4 F L Pulse Rate 77 Respiratory Rate 14 Blood Pressure 134/63 Pulse Oximetry 98 Intake & Output 02/27/18 02/28/18 02/28/18 18:59 06:59 18:59 Intake Total 1200 / 1200 1450 / 1450 Output Total 2 / 2 Balance 1200 / 1200 1448 / 1448 Weight 67.3 kg 67.5 kg Intake: IV 1200 / 1200 NS Inj 1,000 ML @ 84 mls/hr IV. 200 / 200 CONT .[id number] [facility] Rx#:[id number] Oral 1450 / 1450 Output: Stool 2 / 2 Other: # Voids 1 10 Date of Last Bowel Movement 02/25/18 02/28/18 # Bowel Movements 1 3 Narrative: Patient complains of mild pain of the left midfoot HEENT extraocular movements are intact, clear oropharyngeal mucosa Cardiovascular S1-S2 audible Respiratory clear to auscultation bilaterally Abdomen soft, nontender, nondistended, normal bowel sounds Extremities left foot pain near midfoot. mild swelling No significant neurological deficits. Results - Labs CBC & Chem 7: 02/26/18 12:33 02/28/18 07:47 Laboratory Results - last 24 hr 02/27/18 02/27/18 02/27/18 09:30 09:34 13:17 Sodium 143 Potassium 5.2 H Chloride 109 H Carbon Dioxide 24.8 Anion Gap 9 BUN 29 H Creatinine 1.38 H Estimated GFR 46 L POC Glucose 70 110 Random Glucose 73 L Calcium 8.7 Total Bilirubin 0.4 Direct Bilirubin 0.2 Indirect Bilirubin 0.2 AST 41 H ALT 29 Alkaline Phosphatase 84 Total Protein 6.7 D Albumin 2.7 L D 02/27/18 02/27/18 02/28/18 16:48 22:31 07:47 Sodium 144 Potassium 4.1 D Chloride 110 H Carbon Dioxide 24.8 Anion Gap 9 BUN 22 H Creatinine 1.13 H Estimated GFR 58 L POC Glucose 88 92 Random Glucose 89 Calcium 8.2 L Total Bilirubin Direct Bilirubin Indirect Bilirubin AST ALT Alkaline Phosphatase Total Protein Albumin 02/28/18 07:52 Sodium Potassium Chloride Carbon Dioxide Anion Gap BUN Creatinine Estimated GFR POC Glucose 91 Random Glucose Calcium Total Bilirubin Direct Bilirubin Indirect Bilirubin AST ALT Alkaline Phosphatase Total Protein Albumin Microbiology 02/26/18 15:49 Clean Catch Urine Urine Culture - Preliminary No growth in 24 hours Assessment and Plan - Assessment (1) MATT (acute kidney injury) Code(s): N17.9 - Acute kidney failure, unspecified Status: Acute (2) Hypokalemia Code(s): E87.6 - Hypokalemia Status: Acute (3) Metatarsal bone fracture Code(s): S92.309A - Fracture of unspecified metatarsal bone(s), unspecified foot , initial encounter for closed fracture Status: Acute (4) Hypotension Code(s): I95.9 - Hypotension, unspecified Status: Acute - Plan This patient is a 72-year-old -Swiss female with a diagnosis of hypertension and diabetes noticed type II who presented to our emergency department after being evaluated by her primary care physician. She was recently started on furosemide a few days prior to admission. As per documentation the patient's systolic blood pressure was in the 70s and she was then sent to our emergency department for evaluation. 1. Symptomatic hypotension likely secondary to dehydration secondary to medications and poor p.o. intake. 2. Acute kidney injury secondary to #1. 3. Hyperkalemia secondary to acute kidney injury The patient's serum creatinine was elevated at 1.8 on admission. She was started on IV fluids, lisinopril and furosemide was held. Her serum creatinine has showed a down trend. She was also found to be hyperkalemic no significant changes found on EKG. She was given a dose of Kayexalate. Repeat labs show a normalization of her potassium level. Naproxen will also be held when the patient is ready for discharge. 4. Chronic left foot metatarsal head fracture The patient states that she had a fall approximately 1 week ago and hurt her left foot. Imaging shows a chronic fracture. She was evaluated by orthopedics who recommends that the patient wear a boot and limit weightbearing to the left lower extremity. She should follow-up with orthopedics in 1-2 weeks after discharge. She was also advised to use a walker. She will be discharged to a nursing home facility tomorrow. 5. Diabetes mellitus type 2 Continue sliding scale
--- NOTE | 2018-02-28 13:16 | ECG ---
Date Performed: 02/26/2018 Time Performed: 11:07:15 PTAGE: 72 years EKG: Sinus rhythm WITH SINUS ARRHYTHMIA NORMAL ECG PREVIOUS TRACING : 07/14/2013 12.51 Since the previous tracing, no significant change noted DOCTOR: Denny Khan Interpretating Date/Time 02/28/2018 13:13:50
[2018-02-28] MEDS: Lidocaine PF 1% Inj 5 ML Vial OTHER SCH (15:00)
[2018-02-28] MEDS: cefTRIAXone Inj 1,000 MG Vial IM SCH (15:01)
[2018-02-28] MEDS: Enoxaparin Inj 30 MG/0.3 ML Syringe SQ SCH (16:31)
[2018-03-01] MEDS: Insulin NovoLOG Aspart Correctional Sugar Inj SQ SCH ×4 (08:23→22:44)
[2018-03-01] MEDS: Sertraline 50 MG Tablet PO SCH (08:23)
[2018-03-01] MEDS: Senna/Docusate Sodium 8.6/50 MG Tablet PO SCH ×2 (08:24→22:46)
--- NOTE | 2018-03-01 10:40 | P.PNWCN ---
Wound Care Nurse Consult Description: Consult for pressure ulcer of sacrum per Dr Paz Communicated with: KRISTA Valdez patient Recommendation: Continue with Calazime BID and PRN for gluteal fissure. Encourage patient to reposition Q2H. Use only one ultrasorb under patient in bed. Patient is a self turn and therefore a cotton pull pad is not needed or necessary as it only holds in moisture. Cleanse right posterior thigh skin tear and place a transparent film dressing. Leave dressing in place for up to 7 days. Additional information: Patient seen on for wound to gluteal cleft. Also noted is a skin tear to right posterior thigh. Wound/Pressure Injury - Patient Status Premedicated for Pain Prior to Dressing Change: No - Wound Gluteal cleft Wound Type: Skin Tear Length: 1 (cm) Width: 1 (cm) Depth: 0.1 (cm) Wound Bed Appearance: [place] Drainage Amount: None Dressing Status: Open to Air Topical: calazime cream Right posterior thigh Wound Assessment: Ongoing Wound Type: Skin Tear Is This a Chronic Wound: No Length: 1 (cm) Width: 0.4 (cm) Depth: 0.1 (cm) Wound Bed Appearance: [place] Dressing Status: Open to Air
--- NOTE | 2018-03-01 13:27 | P.DS ---
Date of admission: 02/27/18 15:50 Primary care physician: UNKNOWN Brief History from admission: This patient is a 72-year-old -Irish female with a diagnosis of hypertension and diabetes noticed type II who presented to our emergency department after being evaluated by her primary care physician. She was recently started on furosemide a few days prior to admission. As per documentation the patient's systolic blood pressure was in the 70s and she was then sent to our emergency department for evaluation. DS: Diagnosis - Discharge Diagnosis (1) MATT (acute kidney injury) Status: Acute (2) Hypokalemia Status: Acute (3) Metatarsal bone fracture Status: Acute (4) Hypotension Status: Acute DS: Medications - Discharge Medications Prescriptions: lisinopril 10 mg PO DAILY #30 tab DS: Summary Hospital Course: This patient is a 72-year-old -Irish female with a diagnosis of hypertension and diabetes noticed type II who presented to our emergency department after being evaluated by her primary care physician. She was recently started on furosemide a few days prior to admission. As per documentation the patient's systolic blood pressure was in the 70s and she was then sent to our emergency department for evaluation. 1. Symptomatic hypotension likely secondary to dehydration secondary to medications and poor p.o. intake. 2. Acute kidney injury secondary to #1. 3. Hyperkalemia secondary to acute kidney injury. The patient's serum creatinine was elevated at 1.8 on admission. She was started on IV fluids, lisinopril, naproxen and furosemide was held. Her serum creatinine has showed a down trend from 1.8 to 1.1 after initiation of treatment. She was also found to be hyperkalemic no significant changes found on EKG. Repeat labs show a normalization of her potassium level. The patient' s acute kidney injury and hyperkalemia were likely secondary to acute kidney injury from medication and dehydration. 4. Chronic left foot metatarsal head fracture The patient states that she had a fall approximately 1 week ago and hurt her left foot. Imaging shows a chronic fracture. She was evaluated by orthopedics who recommends that the patient wear a boot and limit weightbearing to the left lower extremity. She should follow-up with orthopedics in 1-2 weeks after discharge. She was also advised to use a walker. She will be discharged to a fdc facility today with a 2 a walker. 5. Diabetes mellitus type 2 Continue home medications. She can follow-up with the primary care physician for standard care and monitoring of diabetes mellitus type 2. 6. Stage I sacral ulcer. The patient has a stage I sacral ulcer. Wound care nurse has been following the patient while in-house. Wound care can be continued at the fdc facility. We recommend frequent turning of the patient while at the fdc facility to prevent progression of the small ulceration. 7. Hypertension The patient's blood pressure has improved after initiation of IV fluids. Lisinopril will be restarted however the dose will be lowered to 10 mg p.o. daily. Naproxen and furosemide will be held on discharge. She can follow-up with her primary care physician in 1 week. I recommend a basic metabolic panel to evaluate the patient's potassium and creatinine levels within a week after discharge. - Time Spent with Patient Total time spent providing and/or coordinating discharge services: Less than 30 minutes - Quality: VTE Deep Vein Thrombosis/Pulmonary Embolism Present on Admission: No Exam Vital signs: Vital Signs 02/28/18 17:50 02/28/18 20:00 03/01/18 00:00 Temperature 97.8 F 98.2 F 98.1 F Pulse Rate 84 91 H 91 H Respiratory Rate 16 18 17 Blood Pressure 138/70 143/67 H 147/71 H Pulse Oximetry 99 99 98 03/01/18 04:00 03/01/18 08:00 03/01/18 12:00 Temperature 97.9 F 98.2 F 97.5 F L Pulse Rate 80 81 91 H Respiratory Rate 17 20 20 Blood Pressure 155/75 H 144/71 H 129/61 Pulse Oximetry 100 99 99 Intake & Output 02/28/18 03/01/18 03/01/18 18:59 06:59 18:59 Weight 65.2 kg Other: # Voids 4 3 Date of Last Bowel Movement 02/28/18 03/01/18 # Bowel Movements 1 Narrative: General patient in no acute distress HEENT extraocular movements are intact, clear oropharyngeal mucosa, no JVD Cardiovascular S1-S2 audible Respiratory clear to auscultation bilaterally Abdomen soft, nontender, nondistended, normal bowel sounds Extremities left foot has mild swelling. Mild pain on palpation of the left foot. Distal pulses palpable in bilateral upper and lower extremities. Neuro no significant neurological deficits identified. Patient is ambulatory with a walker. Results Procedures completed during hospitalization: none Labs on day of discharge: Labs from last 24 hours 03/01/18 03/01/18 02/28/18 11:23 07:46 20:11 POC Glucose 177 H 132 H 127 H 02/28/18 17:02 POC Glucose 114 H - Impressions ITS Impressions Abdomen/Bladder Ultrasound 02/26/18 00:00 CONCLUSION: 1. Small right kidney. 2. 2.8 cm mid pole left renal cyst. 3. No solid mass or hydronephrosis. 4. Unremarkable urinary bladder. Chest X-Ray 02/26/18 10:12 CONCLUSION: No acute cardiopulmonary disease. Foot X-Ray 02/26/18 10:35 CONCLUSION: Apparent chronic metatarsal head fractures as above. Head CT 02/26/18 15:28 CONCLUSION: 1. Chronic/senescent changes without acute intracranial abnormality. . Discharge Plan - Discharge Disposition Patient Disposition: 03 Discharge to SNF - Discharge Condition Condition: Fair - Discharge Order Discharge Orders: Discharge Order (Routine); Ordered 03/01/18 Ordered By: Nikki Escobar - Physicians Team Primary Care Provider: UNKNOWN, Attending Provider: Ashley Kothari Other Providers: David Cash MD ; Mckenna Maguire,Bria ; [employer]
[2018-03-01] MEDS: Enoxaparin Inj 40 MG/0.4 ML Syringe SQ SCH (16:46)
[2018-03-02] MEDS: Sertraline 50 MG Tablet PO SCH (08:57)
[2018-03-02] MEDS: Acetaminophen 325 MG Tablet PO PRN ×2 (08:57→21:11)
[2018-03-02] MEDS: Senna/Docusate Sodium 8.6/50 MG Tablet PO SCH ×2 (08:57→21:14)
[2018-03-02] MEDS: Insulin NovoLOG Aspart Correctional Sugar Inj SQ SCH ×4 (08:59→21:14)
--- NOTE | 2018-03-02 14:19 | P.PNIM ---
Subjective Interval history: Patient discharged yesterday. Awaiting insurance company authorization for SNF placement She reports she is feeling okay. Physical Exam Vital signs: Vital Signs 03/01/18 16:00 03/01/18 20:00 03/02/18 00:00 Temperature 98.1 F 98.3 F 99.7 F H Pulse Rate 90 93 H 90 Respiratory Rate 20 18 18 Blood Pressure 120/64 148/66 H 139/71 Pulse Oximetry 100 98 99 03/02/18 04:00 03/02/18 08:00 03/02/18 12:00 Temperature 98.2 F 98.1 F 98.1 F Pulse Rate 84 85 Respiratory Rate 18 20 20 Blood Pressure 141/74 H 149/72 H 128/74 Pulse Oximetry 100 100 98 Intake & Output 03/01/18 03/02/18 03/02/18 18:59 06:59 18:59 Intake Total 980 / 980 Output Total Balance 977 / 977 - Weight 64.4 kg Intake: Oral 980 / 980 Output: Urine Other: # Voids 2 # Incontinent Voids 2 Date of Last Bowel Movement 03/01/18 03/01/18 03/01/18 Narrative: GENERAL: Elderly female in no apparent distress. CARDIOVASCULAR: Normal rate and regular rhythm without murmurs, gallops, or rubs. RESPIRATORY: Good respiratory efforts. Breath sounds equal and clear to auscultation bilaterally. GASTROINTESTINAL: Abdomen soft, non-tender, non-distended. Normal active bowel sounds MUSCULOSKELETAL: Left foot is in a walking boot. Minimal swelling of the left foot. NEURO: Alert & Oriented x4 to person, place, time, situation. Moves all ext x4 PSYCH: Appropriate mood and affect. Results - Labs CBC & Chem 7: 02/26/18 12:33 02/28/18 07:47 Laboratory Results - last 24 hr 03/01/18 03/01/18 03/02/18 16:46 20:26 07:56 POC Glucose 140 H 136 H 115 H 03/02/18 11:57 POC Glucose 119 H - Procedures none Assessment and Plan - Assessment (1) MATT (acute kidney injury) Code(s): N17.9 - Acute kidney failure, unspecified Status: Acute (2) Hypokalemia Code(s): E87.6 - Hypokalemia Status: Acute (3) Metatarsal bone fracture Code(s): S92.309A - Fracture of unspecified metatarsal bone(s), unspecified foot , initial encounter for closed fracture Status: Acute (4) Hypotension Code(s): I95.9 - Hypotension, unspecified Status: Acute - Plan 72-year-old -[place] female with a diagnosis of hypertension and diabetes who presented to our emergency department after being evaluated by her primary care physician. She was recently started on furosemide a few days prior to admission. As per documentation the patient's systolic blood pressure was in the 70s and she was then sent to our emergency department for evaluation. 1. Symptomatic hypotension likely secondary to dehydration secondary to medications and poor p.o. intake. 2. Acute kidney injury secondary to #1. 3. Hyperkalemia secondary to acute kidney injury. The patient's serum creatinine was elevated at 1.8 on admission. She was started on IV fluids, lisinopril, naproxen and furosemide was held. Her serum creatinine has showed a down trend from 1.8 to 1.1 after initiation of treatment. She was also found to be hyperkalemic no significant changes found on EKG. Repeat labs show a normalization of her potassium level. The patient' s acute kidney injury and hyperkalemia were likely secondary to acute kidney injury from medication and dehydration. 4. Chronic left foot metatarsal head fracture The patient states that she had a fall approximately 1 week ago and hurt her left foot. Imaging shows a chronic fracture. She was evaluated by orthopedics who recommends that the patient wear a boot and limit weightbearing to the left lower extremity. She should follow-up with orthopedics in 1-2 weeks after discharge. She was also advised to use a walker. [facility] to [facility] where she will continue rehabilitation efforts. 5. Diabetes mellitus type 2 Continue home medications. She can follow-up with the primary care physician for standard care and monitoring of diabetes mellitus type 2. 6. Stage I sacral ulcer. The patient has a stage I sacral ulcer. Wound care nurse has been following the patient while in-house. Wound care can be continued at the [facility] facility. We recommend frequent turning of the patient while at the [facility] facility to prevent progression of the small ulceration. 7. Hypertension The patient's blood pressure has improved after initiation of IV fluids. Lisinopril restarted however the dose will be lowered to 10 mg p.o. daily. Naproxen and furosemide held on discharge. She can follow-up with her primary care physician in 1 week. Recommend a basic metabolic panel to evaluate the patient's potassium and creatinine levels within a week after discharge. Discharge Planning: Patient is discharged. Awaiting insurance authorization.
[2018-03-02] MEDS: Enoxaparin Inj 40 MG/0.4 ML Syringe SQ SCH (15:39)
[2018-03-03] MEDS: Insulin NovoLOG Aspart Correctional Sugar Inj SQ SCH ×3 (09:08→20:22)
[2018-03-03] MEDS: Senna/Docusate Sodium 8.6/50 MG Tablet PO SCH ×2 (09:09→20:22)
[2018-03-03] MEDS: Sertraline 50 MG Tablet PO SCH (09:09)
--- NOTE | 2018-03-03 16:48 | P.PNIM ---
Subjective Interval history: Patient reports she is feeling okay. No new issues. Still waiting for insurance company approval for SNF placement Physical Exam Vital signs: Vital Signs 03/02/18 20:00 03/03/18 00:00 03/03/18 04:00 Temperature 98.0 F 97.4 F L 97.6 F Pulse Rate 81 73 71 Respiratory Rate 18 18 18 Blood Pressure 141/67 H 159/79 H 152/74 H Pulse Oximetry 99 99 99 03/03/18 08:00 03/03/18 12:00 Temperature 97.9 F 97.6 F Pulse Rate 79 90 Respiratory Rate 16 19 Blood Pressure 142/81 H 116/63 Pulse Oximetry 99 95 Intake & Output 03/02/18 03/03/18 03/03/18 18:59 06:59 18:59 Intake Total 480 / 480 Output Total 3 / 3 3 / 3 Balance -3 / -3 477 / 477 Weight 65.1 kg Intake: Oral 480 / 480 Output: Urine 2 / 2 3 / 3 Stool 1 / 1 Other: # Voids 3 3 # Incontinent Voids 3 Date of Last Bowel Movement 03/02/18 03/02/18 03/02/18 Narrative: GENERAL: Elderly female in no apparent distress. CARDIOVASCULAR: Normal rate and regular rhythm without murmurs, gallops, or rubs. RESPIRATORY: Good respiratory efforts. Breath sounds equal and clear to auscultation bilaterally. GASTROINTESTINAL: Abdomen soft, non-tender, non-distended. Normal active bowel sounds MUSCULOSKELETAL: Left foot is in a walking boot. Minimal swelling of the left foot. NEURO: Alert & Oriented x4 to person, place, time, situation. Moves all ext x4 PSYCH: Appropriate mood and affect. Results - Labs CBC & Chem 7: 02/26/18 12:33 02/28/18 07:47 Laboratory Results - last 24 hr 03/02/18 03/03/18 03/03/18 21:10 08:36 13:01 POC Glucose 105 114 H 91 - Procedures none Assessment and Plan - Assessment (1) MATT (acute kidney injury) Code(s): N17.9 - Acute kidney failure, unspecified Status: Acute (2) Hypokalemia Code(s): E87.6 - Hypokalemia Status: Acute (3) Metatarsal bone fracture Code(s): S92.309A - Fracture of unspecified metatarsal bone(s), unspecified foot , initial encounter for closed fracture Status: Acute (4) Hypotension Code(s): I95.9 - Hypotension, unspecified Status: Acute - Plan 72-year-old -[place] female with a diagnosis of hypertension and diabetes who presented to our emergency department after being evaluated by her primary care physician. She was recently started on furosemide a few days prior to admission. As per documentation the patient's systolic blood pressure was in the 70s and she was then sent to our emergency department for evaluation. 1. Symptomatic hypotension likely secondary to dehydration secondary to medications and poor p.o. intake. 2. Acute kidney injury secondary to #1. 3. Hyperkalemia secondary to acute kidney injury. The patient's serum creatinine was elevated at 1.8 on admission. She was started on IV fluids, lisinopril, naproxen and furosemide was held. Her serum creatinine has showed a down trend from 1.8 to 1.1 after initiation of treatment. She was also found to be hyperkalemic no significant changes found on EKG. Repeat labs show a normalization of her potassium level. The patient' s acute kidney injury and hyperkalemia were likely secondary to acute kidney injury from medication and dehydration. 4. Chronic left foot metatarsal head fracture The patient states that she had a fall approximately 1 week ago and hurt her left foot. Imaging shows a chronic fracture. She was evaluated by orthopedics who recommends that the patient wear a boot and limit weightbearing to the left lower extremity. She should follow-up with orthopedics in 1-2 weeks after discharge. She was also advised to use a walker. The [facility] is [facility] to [facility] where she will continue rehabilitation efforts. 5. Diabetes mellitus type 2 Continue home medications. She can follow-up with the primary care physician for standard care and monitoring of diabetes mellitus type 2. 6. Stage I sacral ulcer. The patient has a stage I sacral ulcer. Wound care nurse has been following the patient while in-house. Wound care can be continued at the [facility] facility. We recommend frequent turning of the patient while at the [facility] facility to prevent progression of the small ulceration. 7. Hypertension The patient's blood pressure has improved after initiation of IV fluids. Lisinopril restarted however the dose will be lowered to 10 mg p.o. daily. Naproxen and furosemide held on discharge. She can follow-up with her primary care physician in 1 week. Recommend a basic metabolic panel to evaluate the patient's potassium and creatinine levels within a week after discharge. Discharge Planning: Patient is discharged. Nursing facility still waiting for insurance company authorization.
[2018-03-03] MEDS: Enoxaparin Inj 40 MG/0.4 ML Syringe SQ SCH (17:39)
[2018-03-03] MEDS: Acetaminophen 325 MG Tablet PO PRN (20:24)
[2018-03-04] MEDS: Senna/Docusate Sodium 8.6/50 MG Tablet PO SCH (08:54)
[2018-03-04] MEDS: Insulin NovoLOG Aspart Correctional Sugar Inj SQ SCH ×2 (08:54→12:37)
[2018-03-04] MEDS: Sertraline 50 MG Tablet PO SCH (08:55)
--- NOTE | 2018-03-04 22:37 | P.PNIM ---
Subjective Interval history: Late entry. Patient seen around 11 AM. She reports she is feeling ok today. Still awaiting for insurance company authorization. Physical Exam Vital signs: Vital Signs 03/04/18 00:00 03/04/18 01:53 03/04/18 04:00 Temperature 97.7 F 98.2 F Pulse Rate 74 69 Respiratory Rate 16 18 18 Blood Pressure 128/71 133/65 Pulse Oximetry 98 99 03/04/18 08:00 Temperature 97.9 F Pulse Rate 72 Respiratory Rate 17 Blood Pressure 117/64 Pulse Oximetry 100 Intake & Output 03/04/18 03/04/18 03/05/18 06:59 18:59 06:59 Intake Total 360 / 360 Balance 360 / 360 Intake: Oral 360 / 360 Other: # Voids 2 Date of Last Bowel Movement 03/02/18 03/03/18 # Bowel Movements 1 Narrative: GENERAL: Elderly female in no apparent distress. CARDIOVASCULAR: Normal rate and regular rhythm without murmurs, gallops, or rubs. RESPIRATORY: Good respiratory efforts. Breath sounds equal and clear to auscultation bilaterally. GASTROINTESTINAL: Abdomen soft, non-tender, non-distended. Normal active bowel sounds MUSCULOSKELETAL: Left foot is in a walking boot. NEURO: Alert & Oriented x4 to person, place, time, situation. Moves all ext x4 PSYCH: Appropriate mood and affect. Results - Labs CBC & Chem 7: 02/26/18 12:33 02/28/18 07:47 Laboratory Results - last 24 hr 03/04/18 03/04/18 06:54 11:44 POC Glucose 98 122 H - Procedures none Assessment and Plan - Assessment (1) MATT (acute kidney injury) Code(s): N17.9 - Acute kidney failure, unspecified Status: Acute (2) Hypokalemia Code(s): E87.6 - Hypokalemia Status: Acute (3) Metatarsal bone fracture Code(s): S92.309A - Fracture of unspecified metatarsal bone(s), unspecified foot , initial encounter for closed fracture Status: Acute (4) Hypotension Code(s): I95.9 - Hypotension, unspecified Status: Acute - Plan 72-year-old -[place] female with a diagnosis of hypertension and diabetes who presented to our emergency department after being evaluated by her primary care physician. She was recently started on furosemide a few days prior to admission. As per documentation the patient's systolic blood pressure was in the 70s and she was then sent to our emergency department for evaluation. 1. Symptomatic hypotension likely secondary to dehydration secondary to medications and poor p.o. intake. 2. Acute kidney injury secondary to #1. 3. Hyperkalemia secondary to acute kidney injury. The patient's serum creatinine was elevated at 1.8 on admission. She was started on IV fluids, lisinopril, naproxen and furosemide was held. Her serum creatinine has showed a down trend from 1.8 to 1.1 after initiation of treatment. She was also found to be hyperkalemic no significant changes found on EKG. Repeat labs show a normalization of her potassium level. The patient' s acute kidney injury and hyperkalemia were likely secondary to acute kidney injury from medication and dehydration. 4. Chronic left foot metatarsal head fracture The patient states that she had a fall approximately 1 week ago and hurt her left foot. Imaging shows a chronic fracture. She was evaluated by orthopedics who recommends that the patient wear a boot and limit weightbearing to the left lower extremity. She should follow-up with orthopedics in 1-2 weeks after discharge. She was also advised to use a walker. The patient is discharged to [facility] facility where she will continue rehabilitation efforts. 5. Diabetes mellitus type 2 Continue home medications. She can follow-up with the primary care physician for standard care and monitoring of diabetes mellitus type 2. 6. Stage I sacral ulcer. The patient has a stage I sacral ulcer. Wound care nurse has been following the patient while in-house. Wound care can be continued at the [facility] facility. We recommend frequent turning of the patient while at the [facility] facility to prevent progression of the small ulceration. 7. Hypertension The patient's blood pressure has improved after initiation of IV fluids. Lisinopril restarted at a lower dose. Naproxen and furosemide held on discharge. She can follow-up with her primary care physician in 1 week. Recommend a basic metabolic panel to evaluate the patient's potassium and creatinine levels within a week after discharge. Discharge Planning: Patient is discharged. Nursing facility still waiting for insurance [id number] authorization.
== END 2018-03-04 15:09 ==
LOC: NEDA 10:01 → NEPE 10:01 → NEPGCP 16:15 → NEDA 16:15 → UNDODISIN 02-27 16:40 → N05 02-27 17:02
PROVIDERS: ADMIT Family Medicine; ATTEND Family Medicine